=== PATIENT | female | born 1995 | race Caucasian/White ===

== ENCOUNTER 2018-07-15 10:21 | Emergency (ER) | END 2018-07-15 13:52 | disposition home or self-care (01) ==

== ENCOUNTER 2018-09-17 12:11 | Emergency (ER) | payer OTHER ==
[~2018-09-17] VITALS: Wt 80.3 kg
[~2018-09-17 12:11] MED LIST: CEPH-443 PO
[2018-09-17 12:24] VITALS: BP 129/71; PULSE 81; RESP 16
--- NOTE | 2018-09-17 17:06 | ERD ---
ER Documentation Chief Complaint Chief Complaint SENT PER OB FOR NO HEART TONE, PT 14 WKS PG, NO VB, NO CRAMPING HPI Patient is a 22-year-old female, G1, P0, presents the ER for concerns of needing a ultrasound as no heart tones were detected in office. Patient was seen today by her STOCK CLERK Dr. Anisha Tolliver. Patient states due to insurance changes this was the first appointment with this physician today. Patient states she has been seeing another STOCK CLERK. Prior to today heart tones were noted and patient was told that she was approximately 14 weeks . Patient reports having ultrasound images at home. Patient does report back pain. She denies any falls or trauma. Patient denies any pelvic pain, vaginal bleeding, fevers, chills, nausea, vomiting, dysuria. ROS All systems reviewed and are negative except as per history of present illness. Medications Home Meds Active Scripts Cephalexin* (Keflex*) 500 Mg Capsule, 500 MG PO TID for 7 Days, CAP Prov:LALITHA FAIRCHILD PA-C 07/15/18 Allergies Allergies: Coded Allergies: No Known Allergy (Unverified , 09/17/18) PMhx/Soc History of Surgery: No Anesthesia Reaction: No Hx Neurological Disorder: No Hx Respiratory Disorders: No Hx Cardiac Disorders: No Hx Psychiatric Problems: No Hx Miscellaneous Medical Probl: No Hx Alcohol Use: Yes (OCCASIONALLY- NONE WHILE ) Hx Substance Use: No Hx Tobacco Use: No Smoking Status: Never smoker FmHx Family History: No diabetes Physical Exam Vitals Vital Signs Date Temp Pulse Resp B/P (MAP) Pulse Ox O2 O2 Flow FiO2 Time Delivery Rate 09/17/18 99.4 81 16 129/71 99 12:24 (90) Physical Exam GENERAL: Well-developed, well-nourished male. Appears in no acute distress. HEAD: Normocephalic, atraumatic. EYES: Pupils are equally reactive bilaterally. EOMs grossly intact. No conjunctival erythema. ENT: Moist mucous membranes. No uvula deviation. No kissing tonsils. NECK: Supple. No meningismus. Normal range of motion of the neck. LUNG: Clear to auscultation bilaterally. No rhonchi, wheezing, rales or coarse breath sounds. HEART: Regular rate and rhythm. No murmurs, rubs or gallops. ABDOMEN: Soft, nontender, and nondistended. Positive bowel sounds in all four quadrants. No rebound tenderness, no guarding. (-) McBurney's point tenderness. No CVA tenderness. EXTREMITIES: Equal pulses bilaterally. No peripheral clubbing, cyanosis or edema. No unilateral leg swelling. NEUROLOGIC: Alert and oriented. Moving all four extremities without any difficulty. Normal speech. Steady gait. SKIN: Normal color. Warm and dry. No rashes or lesions. Results 24 hrs Laboratory Tests Test 09/17/18 15:21 09/17/18 16:16 09/17/18 16:35 09/17/18 16:38 Bedside Urine pH 6.0 6.0 (LAB) Bedside Urine Protein Negative Negative (LAB) Bedside Urine Glucose Negative Negative (UA) Bedside Urine Ketones Negative Negative (LAB) Bedside Urine Blood Trace-intact Trace-intact Bedside Urine Nitrite Negative Negative (LAB) Bedside Urine Negative Negative Leukocyte Esterase (L POC Beta HCG, NEGATIVE Qualitative Beta HCG, < 2.4 mIU/ml Quantitative Procedures/MDM ED COURSE: The patient was stable throughout ED course. I kept the patient and/or family informed of laboratory and diagnostic imaging results throughout the ED course. DIAGNOSTIC IMAGING: Read by radiologist. DIAGNOSTIC IMAGING REPORT Patient: DIANN KAT : 1995 Age: 22 Sex: F MR #: [id number] DOS: 09/17/18 1514 Ordering MD: LALITHA FAIRCHILD PA-C Location: [facility] Room/Bed: PROCEDURE: US Pelvis. CLINICAL INDICATION: vaginal bleeding TECHNIQUE: Multiple sonographic images of the pelvis were obtained utilizing a transabdominal technique. The images were reviewed on a PACS workstation. COMPARISON: None. FINDINGS: The uterus is normal in size and demonstrates a normal appearance of the myometrium. The endometrial stripe is homogeneous in appearance and has the thickness of 9 mm. No intrauterine gestation is noted. The ovaries are normal in size and echogenicity. Normal Doppler flow is identified in both ovaries. The right ovary measures 3.1 x 2.4 x 2.9 cm. The left ovary measures 3.8 x 2.1 x 2.5 cm. No free fluid is present within the pelvis.. RPTAT: AA IMPRESSION: No intrauterine gestation visualized. Differential diagnosis includes early , missed or ectopic . Follow-up ultrasound and HCG levels is recommended. .Macho Dinh MD, MD Date Time Electronically viewed and signed by .Macho Dinh MD, MD on 09/17/2018 15:58 .S/ CC: LALITHA FAIRCHILD PA-C [id number] MEDICAL DECISION MAKING: This is a 22-year-old female who presents to the ER needing pelvic ultrasound. Patient was seen today by her STOCK CLERK and heart tones were not detected. She was referred to the ER for formal OB ultrasound. Patient stated that she was 14 weeks . Vital signs were reviewed. Patient was afebrile. Patient was not hypoxic. Pelvic ultrasound was obtained. Pelvic ultrasound showed No intrauterine gestation visualized. Differential diagnosis includes early , missed or ectopic . Follow-up ultrasound and HCG levels is recommended. Urine test was negative. Beta hCG quantitative was less than 2.4. Patient was advised of ultrasound and blood work as well as urine test results being negative for . Today's findings are consistent with previous history of being approximately 14 weeks . Unclear if patient had a spontaneous as patient stated that she did not have any episodes of vaginal bleeding since last July 2018. Patient was advised she should follow-up with her STOCK CLERK tomorrow morning and discuss all findings with her. A copy of all blood work and ultrasound imaging was given to patient. Low suspicion for retained products, ectopic , ruptured ectopic , incomplete , septic . Patient was nontoxic, non-opening prior to discharge. DISCHARGE: At this time, patient is stable for discharge and outpatient management. I have instructed the patient to promptly return to the ER at any time for any new or worsening symptoms including increased pain, nausea, vomiting, continued bleeding, weakness, syncope or fever. The patient and/or family expressed understanding of and agreement with this plan. All questions were answered. Home care instructions were provided. Disclaimer: Inadvertent spelling and grammatical errors are likely due to EHR/dictation software use and do not reflect on the overall quality of patient care. Also, please note that the electronic time recorded on this note does not necessarily reflect the actual time of the patient encounter. Departure Diagnosis: Primary Impression: Encounter for laboratory test Condition: Stable Additional Instructions: Follow up with your STOCK CLERK doctor. Discussed today's beta-hCG and ultrasound findings. Call your primary care doctor TOMORROW for an appointment during the next 1-2 days.See the doctor sooner or return here if your condition worsens before your appointment time. LALITHA FAIRCHILD PA-C Sep 17, 2018 17:04
== END 2018-09-17 17:55 | disposition home or self-care (01) ==
LOC: FTE 12:11
DX: Z32.00 Encounter for pregnancy test, result unknown (principal)
CPT/HCPCS: 76801; 81003; 81025; 84702